=== PATIENT | female | born 1945 | race Caucasian/White ===

== ENCOUNTER 2019-11-28 11:33 | Emergency (ER) | payer SELFPAY ==
--- NOTE | 2019-11-28 11:45 | ERPHSYRPT ---
- History of Present Illness Time Seen by Provider: 11/28/19 11:45 Historian: patient Exam Limitations: clinical condition Physician History: 74 y/o white female presents with soa and cp. sx of coughing then worsening soa and chest pain today. pt does not go to the doctor. no meds. Timing/Duration: day(s) (2), worse Quality: pressure, stabbing Location: substernal Chest Pain Radiation: no radiation Severity of Pain-Max: mild Severity of Pain-Current: mild Modifying Factors: Improves With: coughing Associated Symptoms: shortness of breath, cough, weakness Prior Chest Pain/Cardiac Workup: no prior cardiac workup Nitro Today/Relief: no nitro taken today Aspirin Treatment Today: no aspirin today Allergies/Adverse Reactions: banana [Banana] Allergy (Mild, Verified 11/28/19 11:42) morphine Allergy (Mild, Verified 11/28/19 11:42) potassium Allergy (Mild, Verified 11/28/19 11:42) tree nut [Tree Nut] Allergy (Verified 11/28/19 11:42) Hx Tetanus, Diphtheria Vaccination/Date Given: No Hx Influenza Vaccination/Date Given: No Hx Pneumococcal Vaccination/Date Given: No - Review of Systems Constitutional: No Symptoms Eyes: No Symptoms Ears, Nose, & Throat: No Symptoms Respiratory: Cough, Dyspnea Cardiac: Chest Pain Abdominal/Gastrointestinal: No Symptoms Genitourinary Symptoms: No Symptoms Musculoskeletal: No Symptoms Skin: No Symptoms Neurological: No Symptoms Psychological: No Symptoms Endocrine: No Symptoms Hematologic/Lymphatic: No Symptoms Immunological/Allergic: No Symptoms All Other Systems: Reviewed and Negative - Past Medical History Pertinent Past Medical History: Yes Neurological History: No Pertinent History ENT History: No Pertinent History Cardiac History: Hypertension Respiratory History: No Pertinent History Endocrine Medical History: No Pertinent History Musculoskeletal History: Degenerative Disk Disease (lower back) GI Medical History: No Pertinent History History: No Pertinent History Psycho-Social History: No Pertinent History Female Reproductive Disorders: No Pertinent History - Past Surgical History Past Surgical History: Yes Neuro Surgical History: No Pertinent History Cardiac: No Pertinent History Respiratory: No Pertinent History Gastrointestinal: Appendectomy Genitourinary: No Pertinent History Musculoskeletal: No Pertinent History - Social History Smoking Status: Current every day smoker How long have you smoked: YRS Exposure to second hand smoke: Yes Drug Use: none Patient Lives Alone: No Significant Family History: no pertinent family hx - Nursing Vital Signs Nursing Vital Signs: Initial Vital Signs Temperature 98.2 F 11/28/19 11:34 Pulse Rate 102 H 11/28/19 11:34 Respiratory Rate 30 H 11/28/19 11:34 Blood Pressure 237/153 11/28/19 11:34 O2 Sat by Pulse Oximetry 95 11/28/19 11:34 Pain Scale Pain Intensity 0 - Physical Exam General Appearance: moderate distress, alert, anxiety, thin Eye Exam: PERRL/EOMI, eyes nml inspection Ears, Nose, Throat Exam: normal ENT inspection, moist mucous membranes Neck Exam: normal inspection, non-tender, supple, full range of motion Respiratory Exam: normal breath sounds, chest tenderness, lungs clear, respiratory distress Cardiovascular Exam: tachycardia Gastrointestinal/Abdomen Exam: soft, normal bowel sounds, No tenderness Pelvic Exam: not done Rectal Exam: not done Back Exam: normal inspection, normal range of motion, No CVA tenderness, No vertebral tenderness Extremity Exam: normal inspection, normal range of motion, pelvis stable Neurologic Exam: alert, oriented x 3, cooperative, disability program navigator II-XII nml as tested Skin Exam: normal color, warm, dry Lymphatic Exam: No adenopathy SpO2 Interpretation: normal O2 Delivery: Nasal Cannula - Course Nursing assessment & vital signs reviewed: Yes EKG Interpreted by Me: RATE (106), NORMAL AXIS, NORMAL INTERVALS, NORMAL QRS, Other (SI/QIII; no comparison ekg) Ordered Tests: Active Orders 24 hr Category Date Time Status Cell Technician STAT Care 11/28/19 11:47 Active EKG-ER Only STAT Care 11/28/19 11:46 Active IV Insertion STAT Care 11/28/19 11:46 Active Oxygen-ED Only Nasal Cannula 2 lpm Care 11/28/19 11:46 Active CHEST 1 VIEW (PORTABLE) Stat Exams 11/28/19 11:47 Completed ABG [ARTERIAL BLOOD GASES] Stat Lab 11/28/19 11:52 Completed CBC W DIFF Stat Lab 11/28/19 11:55 Completed CMP Stat Lab 11/28/19 11:55 Completed D-DIMER QUANTITATIVE Stat Lab 11/28/19 11:55 Completed Lactic Acid Stat Lab 11/28/19 12:00 Completed NT PRO BNP Stat Lab 11/28/19 11:55 Completed PROTIME WITH INR Stat Lab 11/28/19 11:55 Completed TROPONIN Q3H Lab 11/28/19 11:55 Completed TROPONIN Q3H Lab 11/28/19 15:00 Ordered TROPONIN Q3H Lab 11/28/19 18:00 Ordered TROPONIN Q3H Lab 11/28/19 21:00 Ordered TROPONIN Q3H Lab 11/29/19 00:00 Ordered Medication Summary Generic Name Dose Route Start Last Admin Trade Name Nika PRN Reason Stop Dose Admin Sodium Chloride 1,000 mls @ 50 mls/hr 11/28/19 12:00 11/28/19 11:58 Sodium Chloride 0.9% 1000 Ml IV 12/28/19 11:59 50 mls/hr .Q20H UNA Administration Discontinued Medications Generic Name Dose Route Start Last Admin Trade Name Nika PRN Reason Stop Dose Admin Hydralazine HCl 5 mg 11/28/19 12:38 11/28/19 13:30 Apresoline 20 Mg/Ml Inj IV 11/28/19 12:39 5 mg STAT ONE Administration Hydralazine HCl Confirm 11/28/19 13:02 Apresoline 20 Mg/Ml Inj Administered 11/28/19 13:03 Dose 20 mg .ROUTE .STK-MED ONE Hydralazine HCl 10 mg 11/28/19 13:18 11/28/19 14:07 Apresoline 20 Mg/Ml Inj IV 11/28/19 13:19 Not Given STAT ONE Hydralazine HCl 2.5 mg 11/28/19 14:18 Apresoline 20 Mg/Ml Inj IV 11/28/19 14:19 STAT ONE Lorazepam 1 mg 11/28/19 11:48 11/28/19 11:56 Ativan 2 Mg/1 Ml Vial IV 11/28/19 11:49 1 mg STAT ONE Administration Lorazepam Confirm 11/28/19 11:53 Ativan 2 Mg/1 Ml Vial Administered 11/28/19 11:54 Dose 2 mg .ROUTE .STK-MED ONE Ondansetron HCl 4 mg 11/28/19 11:46 11/28/19 11:57 Zofran 4 Mg/2 Ml Vial IV 11/28/19 11:47 4 mg STAT ONE Administration Ondansetron HCl Confirm 11/28/19 11:53 Zofran 4 Mg/2 Ml Vial Administered 11/28/19 11:54 Dose 4 mg .ROUTE .STK-MED ONE Lab/Rad Data: Laboratory Result Diagrams 11/28/19 11:55 11/28/19 11:55 Laboratory Results 11/28/19 11/28/19 11/28/19 Range/Units 12:00 11:55 11:55 WBC (4.0-10.5) K/mm3 RBC (4.1-5.4) M/mm3 Hgb (12.0-16.0) gm/dl Hct (35-47) % MCV (78-100) fl MCH (26-32) pg MCHC (32-36) g/dl RDW (11.5-14.0) % Plt Count (150-450) K/mm3 MPV (7.5-11.0) fl Gran % (36.0-66.0) % Eos # (Auto) (0-0.5) Absolute Lymphs (auto) (1.0-4.6) Absolute Monos (auto) (0.0-1.3) Lymphocytes % (24.0-44.0) % Monocytes % (0.0-12.0) % Eosinophils % (0.00-5.0) % Basophils % (0.0-0.4) % Absolute Granulocytes (1.4-6.9) Basophils # (0-0.4) PT 10.8 (9.95-12.35) SECONDS INR 0.96 (0.8-3.0) D-Dimer 581 H* (215-500) ng/mL Puncture Site pCO2 (35-45) mmHg pO2 (75-100) mmHg Base Excess (-2.0-2.0) O2 Saturation (94-100) g/dF ABG pH (7.35-7.45) ABG HCO3 (22-28) ABG O2 Sat (Measured) (95-100) % Mik Test A-a Gradient a/A Ratio Hemoglobin Carboxyhemoglobin (0.0-6.9) % THgb Methemoglobin (1.4-1.5) % Potassium (3.5-5.1) Temperature C POC O2 Flow Rate % Sodium (137-145) mmol/L Chloride (98-107) mmol/L Carbon Dioxide (22-30) mmol/L Anion Gap (5-15) MEQ/L BUN (7-17) mg/dL Creatinine (0.52-1.04) mg/dL Estimated GFR ML/MIN Glucose (74-106) mg/dL Lactic Acid 1.2 (0.4-2.0) Calcium (8.4-10.2) mg/dL Total Bilirubin (0.2-1.3) mg/dL AST (14-36) U/L ALT (0-35) U/L Alkaline Phosphatase (38-126) U/L Troponin I < 0.012 (0.000-0.034) ng/mL NT-Pro-B Natriuret Pep (0-1800) pg/mL Serum Total Protein (6.3-8.2) g/dL Albumin (3.5-5.0) g/dL 11/28/19 11/28/19 11/28/19 Range/Units 11:55 11:55 11:52 WBC 9.1 (4.0-10.5) K/mm3 RBC 5.22 (4.1-5.4) M/mm3 Hgb 17.6 H (12.0-16.0) gm/dl Hct 51.0 H (35-47) % MCV 97.7 (78-100) fl MCH 33.7 H (26-32) pg MCHC 34.5 (32-36) g/dl RDW 13.5 (11.5-14.0) % Plt Count 213 (150-450) K/mm3 MPV 10.6 (7.5-11.0) fl Gran % 79.1 H (36.0-66.0) % Eos # (Auto) 0.04 (0-0.5) Absolute Lymphs (auto) 1.25 (1.0-4.6) Absolute Monos (auto) 0.60 (0.0-1.3) Lymphocytes % 13.8 L (24.0-44.0) % Monocytes % 6.6 (0.0-12.0) % Eosinophils % 0.4 (0.00-5.0) % Basophils % 0.1 (0.0-0.4) % Absolute Granulocytes 7.16 H (1.4-6.9) Basophils # 0.01 (0-0.4) PT (9.95-12.35) SECONDS INR (0.8-3.0) D-Dimer (215-500) ng/mL Puncture Site RIGHT BRACHIAL pCO2 18 L* (35-45) mmHg pO2 160 H* (75-100) mmHg Base Excess -0.3 (-2.0-2.0) O2 Saturation 95.6 (94-100) g/dF ABG pH 7.62 H* (7.35-7.45) ABG HCO3 18.5 L (22-28) ABG O2 Sat (Measured) 99.3 (95-100) % Mik Test NOT APPLICABLE A-a Gradient 17 a/A Ratio 0.90 Hemoglobin 18.2 Carboxyhemoglobin 2.7 (0.0-6.9) % THgb Methemoglobin 0.9 L (1.4-1.5) % Potassium 4.0 6.5 H* (3.5-5.1) Temperature 37.0 C POC O2 Flow Rate 28 % Sodium 143 (137-145) mmol/L Chloride 111 H (98-107) mmol/L Carbon Dioxide 25 (22-30) mmol/L Anion Gap 10.6 (5-15) MEQ/L BUN 16 (7-17) mg/dL Creatinine 0.72 (0.52-1.04) mg/dL Estimated GFR > 60.0 ML/MIN Glucose 125 H (74-106) mg/dL Lactic Acid (0.4-2.0) Calcium 9.5 (8.4-10.2) mg/dL Total Bilirubin 0.60 (0.2-1.3) mg/dL AST 33 (14-36) U/L ALT 11 (0-35) U/L Alkaline Phosphatase 163 H (38-126) U/L Troponin I (0.000-0.034) ng/mL NT-Pro-B Natriuret Pep 325 (0-1800) pg/mL Serum Total Protein 8.4 H (6.3-8.2) g/dL Albumin 4.4 (3.5-5.0) g/dL - Progress Progress: improved, re-examined Air Movement: good Progress Note: 11/28/19 14:27 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 she did not tell triage or myself this. cta chest cancelled. pt refusing any further testing. she is feeling better and wants to go home. she does not want any admission or transfer. she states she will likely not even fill rx because she does not have any money. Blood Culture(s) Obtained: No Antibiotics given: No Counseled pt/family regarding: lab results, diagnosis, need for follow-up, rad results - Departure Departure Disposition: Home Clinical Impression: Hypertensive urgency Condition: Stable Critical Care Time: Yes Critical Care Time(excluding separately billable procedures): Critical 30-74 mins Referrals: TERESA ROBERSON [Primary Care Provider] - Additional Instructions: drink plenty of fluids. follow up with primary doctor for further management Prescriptions: Lisinopril 10 mg [Zestril 10 MG] 10 mg PO DAILY #20 tablet
[2019-11-28] MEDS ORDERED: Zofran 4 MG/2 ML VIAL IV ONE (11:46)
[2019-11-28] MEDS ORDERED: Ativan 2 MG/1 ML VIAL IV ONE (11:48)
[2019-11-28] MEDS ORDERED: Ativan 2 MG/1 ML VIAL ONE (11:53)
[2019-11-28] MEDS ORDERED: Zofran 4 MG/2 ML VIAL ONE (11:53)
[2019-11-28] MEDS ORDERED: Sodium Chloride 0.9% 1000 ML 1,000 ML ONE (11:53)
[2019-11-28] MEDS ORDERED: Sodium Chloride 0.9% 1000 ML 1,000 ML IV SCH (12:00)
[2019-11-28 12:03] LABS: A-aADO2 17; ABG HEMOGLOBIN 18.2; ARTERIAL BLD GAS O2 SATURATION 99.3 % (95-100); ARTERIAL BLOOD GAS BASE EXCESS -0.3 (-2.0-2.0); ARTERIAL BLOOD GAS FIO2 28 %; ARTERIAL BLOOD GAS PO2 160 mmHg (75-100); ARTERIAL BLOOD GAS pH 7.62 (7.35-7.45); CARBOXYHEMOGLOBIN 2.7 % THgb (0.0-6.9); HCO3- 18.5 (22-28); HGB O2 SAT 95.6 g/dF (94-100); Methhemoglobin 0.9 % (1.4-1.5)
[2019-11-28 12:05] VITALS: BP 183/126; PULSE 96; O2SAT 95
[2019-11-28 12:05] LABS: ABG POTASSIUM 6.5 (3.5-5.1); ARTERIAL BLOOD GAS PCO2 18 mmHg (35-45)
[2019-11-28 12:06] LABS: ABG SITE RIGHT BRACHIAL
[2019-11-28 12:27] LABS: ALBUMIN 4.4 g/dL (3.5-5.0); ALKALINE PHOSPHATASE 163 U/L (38-126); ANION GAP 10.6 MEQ/L (5-15); Absolute Neutrophil Ct (ANC) 7.16 (1.4-6.9); BASOPHIL % 0.1 % (0.0-0.4); BLOOD UREA NITROGEN 16 mg/dL (7-17); Basophil (Absolute #) 0.01 (0-0.4); CHLORIDE 111 mmol/L (98-107); Calcium 9.5 mg/dL (8.4-10.2); Carbon Dioxide 25 mmol/L (22-30); Creatinine 1 0.72 mg/dL (0.52-1.04); Eosinophil % 0.4 % (0.00-5.0); Eosinophil (Absolute #) 0.04 (0-0.5); Glucose 125 mg/dL (74-106); Hemoglobin 17.6 gm/dl (12.0-16.0); Lymphocyte (Absolute #) 1.25 (1.0-4.6); Lymphocytes % 13.8 % (24.0-44.0); Mean Cell Volume 97.7 fl (78-100); Mean Corpuscular Hemoglobin 33.7 pg (26-32); Mean Corpuscular Hgb Concent. 34.5 g/dl (32-36); Mean Platelet Volume 10.6 fl (7.5-11.0); Monocytes % 6.6 % (0.0-12.0); NT PRO BNP 325 pg/mL (0-1800); Neutrophil % 79.1 % (36.0-66.0); Platelet Count 213 K/mm3 (150-450); Red Blood Count 5.22 M/mm3 (4.1-5.4); Red Cell Distribution Width 13.5 % (11.5-14.0); SGOT/AST 33 U/L (14-36); SGPT/ALT 11 U/L (0-35); SODIUM 143 mmol/L (137-145); Total Protein 8.4 g/dL (6.3-8.2); White Blood Count 9.1 K/mm3 (4.0-10.5)
[2019-11-28] MEDS ORDERED: APRESOLINE 20 MG/ML INJ IV ONE ×3 (12:38→14:18)
[2019-11-28 12:49] LABS: INR 0.96 (0.8-3.0); PROTIME 10.8 SECONDS (9.95-12.35)
--- NOTE | 2019-11-28 12:55 | XRAY ---
Indication: Chest pain short of breath. Comparison: None Portable chest hyperinflated with minimal left base fibrosis/scarring. No focal infiltrate, consolidation, or large effusion. Heart is not enlarged. Small left hilar and right axilla calcified nodes. Descending aorta is tortuous. Bony thorax intact with mild osteopenia, degenerative changes, and mild double curvature scoliosis. Impression: Nonacute chest with chronic features.
[2019-11-28] MEDS ORDERED: APRESOLINE 20 MG/ML INJ ONE ×2 (13:02→14:27)
== END 2019-11-28 15:38 | disposition home or self-care (01) ==
LOC: ED 11:33
DX: I16.0 Hypertensive urgency (principal)
CPT/HCPCS: 36000; 36415; 36600; 71045; 80053; 82375; 82803; 83605; 83880; 84484; 85025; 85379; 85610; 93005; 93041; 96374; 96375; 96376; 99284; 99291; J0360; J2060; J2405